=== PATIENT | female | born 1970 | race Caucasian/White ===

== ENCOUNTER 2016-12-03 14:15 | Emergency (ER) | payer MEDICAID, OTHER ==
[~2016-12-03] VITALS: Ht 160 cm; Wt 88.5 kg
--- NOTE | 2016-12-03 14:19 | EN ---
Date/Time of Note Date/Time of Note DATE: 12/03/16 TIME: 14:18 ER Progress Note Medical screening exam note: 46-year-old female comes in with left upper and left mid abdominal pain, medical screening exam was done. Patient will need lab work, pain medication further evaluation and emergency department 2. SHANNEN CARROLL PA-C Dec 03, 2016 14:19
[2016-12-03 14:29] VITALS: Ht 160 cm; Wt 88.5 kg
[2016-12-03] MEDS ORDERED: morphine 4 MG/ML VIAL IV STA (15:00)
[2016-12-03] MEDS ORDERED: ONDANSETRON 4 MG INJ IV STA (15:00)
[2016-12-03 15:21] LABS: ADD SCAN DIFF NO
[2016-12-03 15:41] LABS: ADD UMIC YES; URINE BILIRUBIN (Dip) NEGATIVE (NEGATIVE); URINE BLOOD (Dip) TRACE (NEGATIVE); URINE COLOR LT. YELLOW (YELLOW); URINE GLUCOSE (Dip) NEGATIVE (NEGATIVE); URINE KETONES (Dip) NEGATIVE (NEGATIVE); URINE LEUKOCYTE ESTERASE (Dip) 1+ (NEGATIVE); URINE NITRITE (Dip) NEGATIVE (NEGATIVE); URINE TOTAL PROTEIN (Dip) NEGATIVE (NEGATIVE); URINE UROBILINOGEN (Dip) 0.2 E.U./dL (0.1-1.0)
[2016-12-03 15:43] LABS: BASOPHILS % 0.4 % (0.0-2.0); EOSINOPHILS # 0.2 10^3/ul (0.0-0.5); EOSINOPHILS % 2.4 % (0.0-7.0); HEMATOCRIT 48.2 % (37.0-47.0); LYMPHOCYTES # 1.5 10^3/ul (0.8-2.9); LYMPHOCYTES % 22.3 % (15.0-51.0); MEAN CORPUSCULAR HEMOGLOBIN 30.9 pg (29.0-33.0); MEAN CORPUSCULAR HGB CONC 33.2 g/dl (32.0-37.0); MEAN CORPUSCULAR VOLUME 93.2 fl (82.0-101.0); MEAN PLATELET VOLUME 10.5 fl (7.4-10.4); MONOCYTE # 0.6 10^3/ul (0.3-0.9); MONOCYTES % 8.8 % (0.0-11.0); NEUTROPHIL # 4.4 10^3/ul (1.6-7.5); NEUTROPHILS % 65.8 % (39.0-77.0); PLATELET COUNT 260 10^3/UL (140-415); RED BLOOD COUNT 5.17 10^6/ul (4.20-5.40); RED CELL DISTRIBUTION WIDTH 13.1 % (11.5-14.5); WHITE BLOOD COUNT 6.7 10^3/ul (4.8-10.8)
--- NOTE | 2016-12-03 15:47 | RADRPT ---
PROCEDURE: US Abdomen. CLINICAL INDICATION: abdominal pain TECHNIQUE: Multiple real-time images were acquired of the patient's right upper quadrant abdomen a nd retroperitoneum utilizing a high resolution transducer. COMPARISON: None FINDINGS: The liver demonstrates increased echogenicity. The liver is normal in size and no focal solid lesio ns are seen. The liver measures 14.8 cm in length. The portal vein is patent with normal direction o f flow. No intrahepatic biliary dilatation is seen. No gallstones are identified within the gallbladder. There is no pericholecystic fluid or gallbladd er wall thickening. The common bile duct measures 3.5 mm in maximal dimension. The visualized portions of the pancreas are unremarkable. The tail of the pancreas is not seen. No free fluid is identified. The right kidney is normal in size, and demonstrate normal echogenicity and cortical thickness. The right kidney measures 9.1 cm in long dimension. There is no evidence of hydronephrosis. There are no kidney stones. RPTAT: AA IMPRESSION: Diffuse fatty infiltration of the liver. No evidence of gallstones. .Rio Farnsworth MD, MD Date Time Electronically viewed and signed by .Rio Farnsworth MD, on 12/03/2016 15:46 .S/
[2016-12-03 15:55] LABS: BACTERIA,URINE FEW; SQUAMOUS EPITHELIAL CELL,UR MODERATE; URINE RBCS 0-2 /HPF (0)
[2016-12-03 15:57] LABS: ALBUMIN/GLOBULIN RATIO 1.42; BILIRUBIN,INDIRECT 0.3 mg/dl (0-1.1); BILIRUBIN,TOTAL 0.3 mg/dl (0.2-1.3); CALCIUM 9.5 mg/dl (8.4-10.2); CREATININE 0.88 mg/dl (0.44-1.00); TOTAL PROTEIN 8.5 g/dl (6.1-8.1)
--- NOTE | 2016-12-03 17:07 | RADRPT ---
PROCEDURE: CT Abdomen and Pelvis without contrast CLINICAL INDICATION: Abdominal pain TECHNIQUE: Transaxial images were obtained through the abdomen and pelvis on a multi-slice scanner without the intravenous contrast administration. No oral contrast had previously been given. Sagit josias and coronal re-formations were subsequently reconstructed. One or more of the following dose reduction techniques were used: - Automated exposure control. - Adjustment of the mA and/or kV according to patient size. - Use of iterative reconstruction technique. Radiation dose: CTDIvol = 22.87 mGy; DLP = 1469.01 mGy-cm. COMPARISON: Comparison to the right upper quadrant abdominal sonogram done earlier on the same rodolfo e. The previous sonogram demonstrated increased echotexture to the liver but was otherwise unremarkable . FINDINGS: Lung bases: The visualized lung bases appear unremarkable. Liver: The liver is normal in size. To hypodensities are seen within the right lobe of the liver an teriorly the largest of which measures 1.6 cm in diameter compatible with cysts. No other focal les ion is evident. Gallbladder: The wall is not thickened. No radiopaque stones are identified. Bile ducts: The intra and extrahepatic bile ducts are normal in caliber. Pancreas: Appears normal with no mass or inflammation evident. Spleen: Normal in size with no focal lesion. Adrenals: Normal with no mass identified. Kidneys, ureters and bladder: The kidneys are normal in size and there is no mass, pathological calc ification, or hydronephrosis evident. There is no perinephric stranding. The ureters are normal in c aliber and no ureteroliths are identified. The bladder appears unremarkable. Reproductive organs: The uterus deviates to the left of midline. No adnexal mass is evident. Stomach and bowel: The stomach appears unremarkable. There is no evidence of bowel obstruction or i nflammation. Substantial stool is seen in the right colon. Appendix: A normal vermiform appendix is evident. Peritoneum: No free intraperitoneal fluid or air is identified. There is a small fat containing umbi lical hernia. Aorta: Normal in caliber with no aneurysmal dilatation. IVC: Unremarkable. Lymph nodes: No pathologically enlarged nodes are identified. Osseous structures: The osseous elements appear intact and there is straightening of the normal lord otic curvature to the lumbar spine. IMPRESSION: 1. The liver is normal in size and 2 cysts are seen in the right lobe the largest of which measures 1.6 cm in diameter. 2. There is no evidence of bowel obstruction or inflammation and a normal vermiform appendix is jessica dent. 3. No evidence of urinary outflow obstruction or ureterolithiasis. 4. There is no free intraperitoneal fluid or air. 5. Small fat containing umbilical hernia 6. Straightening of the normal lordotic curvature to the lumbar spine. Physician Tammy Date Time Electronically viewed and signed by Maxi Ramírez Physician on 12/03/2016 17:07 /
[2016-12-03] MEDS ORDERED: ACYC800T57 PO (17:15)
[2016-12-03] MEDS ORDERED: NITR-58 PO (17:15)
[2016-12-03] MEDS ORDERED: IBUP-1542 PO (17:15)
[2016-12-03 17:27] VITALS: BP 122/66; PULSE 76; RESP 18; TEMP 98.2
--- NOTE | 2016-12-03 17:35 | ERD ---
ER Documentation Chief Complaint Date/Time DATE: 12/03/16 TIME: 17:26 Chief Complaint ap x 7 days HPI 46-year-old female complaining of periumbilical abdominal pain 7 days. Patient stated the pain is constant, but sometimes it gets worse. Described pain as grinding and punching-like feeling. Pain is worse while walking. She went to [facility] ER yesterday, was told that she has shingles. Patient stated that she does have a few lesions on her back, but they do not hurt. Patient reports chills, but denies fever. Denies vomiting or diarrhea. Last bowel movement was this morning, which was normal. Last meal was at 1130 this morning. Patient is postmenopausal 7 years. Denies any other medical history. ROS All systems reviewed and are negative except as per history of present illness. Medications Home Meds Active Scripts Acyclovir* (Zovirax*) 800 Mg Tablet, 800 MG PO 5 TIMES DAILY for 7 Days, TAB Prov:CHASITY PHILLIPS. MILL WASHER 12/03/16 Ibuprofen* (Motrin*) 600 Mg Tab, 600 MG PO Q6H Y for PAIN AND OR ELEVATED TEMP, #30 TAB Prov:CHASITY PHILLIPS. M[employer] WASHER 12/03/16 Nitrofurantoin Monohyd Macrocr* (Macrobid*) 100 Mg Capsr, 100 MG PO BID for 7 Days, CAP Prov:CHASITY PHILLIPS. M[employer] WASHER 12/03/16 Allergies Allergies: Coded Allergies: No Known Allergy (Unverified , 12/03/16) PMhx/Soc Medical and Surgical Hx: pt denies Medical Hx, pt denies Surgical Hx History of Surgery: No Anesthesia Reaction: No Hx Neurological Disorder: No Hx Respiratory Disorders: No Hx Cardiac Disorders: No Hx Psychiatric Problems: No Hx Miscellaneous Medical Probl: No Hx Alcohol Use: No Hx Substance Use: No Hx Tobacco Use: No Smoking Status: Never smoker Physical Exam Vitals Vital Signs Date Time Temp Pulse Resp B/P Pulse Ox O2 Delivery O2 Flow Rate FiO2 12/03/16 14:29 98.6 78 18 118/65 95 Physical Exam General: Well-developed, obese, conscious and coherent, in no distress Skin: Warm and dry, good texture and turgor. Vesicular lesions noted on the left lower back, following the T12 dermatome. Head: Normocephalic without evidence of trauma Eyes: Sclera and conjunctivae normal; pupils equal, round, and reactive to light; extraocular movements are intact Neck: Supple without meningismus or adenopathy. Carotids are equal. Trachea midline. No bruits or JVD Chest: Normal AP diameter. Good expansion without retractions. Nontender. Lungs are clear to auscultate bilaterally with good tidal volume Heart: Regular rate and rhythm. No murmur, rub, or gallops heard Abdomen: Soft and obese, periumbilical and suprapubic tenderness without masses, guarding, or rebound. Bowel sounds are active. No hepatosplenomegaly Back: Without spinal or CVA tenderness Pelvis: Nontender to palpation and stable to compression Extremities: Full range of motion. Good strength bilaterally. No clubbing, cyanosis, or edema. Peripheral pulses are intact. Sensation intact Neuro: Alert and oriented 4, GCS 15. Cranial nerves grossly intact. Motor and sensory exams nonfocal. Moves all extremities. Speech clear. Gait normal Result Diagram: 12/03/16 1511 12/03/16 1511 Results 24 hrs Laboratory Tests Test 12/03/16 15:11 12/03/16 15:15 White Blood Count 6.710^3/ul Red Blood Count 5.1710^6/ul Hemoglobin 16.0g/dl Hematocrit 48.2% Mean Corpuscular Volume 93.2fl Mean Corpuscular Hemoglobin 30.9pg Mean Corpuscular Hemoglobin Concent 33.2g/dl Red Cell Distribution Width 13.1% Platelet Count 90534^3/UL Mean Platelet Volume 10.5fl Neutrophils % 65.8% Lymphocytes % 22.3% Monocytes % 8.8% Eosinophils % 2.4% Basophils % 0.4% Nucleated Red Blood Cells % 0.0/100WBC Neutrophils # 4.410^3/ul Lymphocytes # 1.510^3/ul Monocytes # 0.610^3/ul Eosinophils # 0.210^3/ul Basophils # 0.010^3/ul Nucleated Red Blood Cells # 0.010^3/ul Sodium Level 144mmol/L Potassium Level 4.0mmol/L Chloride Level 106mmol/L Carbon Dioxide Level 27mmol/L Anion Gap 15 Blood Urea Nitrogen 15mg/dl Creatinine 0.88mg/dl Glucose Level 105mg/dl Calcium Level 9.5mg/dl Total Bilirubin 0.3mg/dl Direct Bilirubin 0.00mg/dl Indirect Bilirubin 0.3mg/dl Aspartate Amino Transf (AST/SGOT) 83IU/L Alanine Aminotransferase (ALT/SGPT) 158IU/L Alkaline Phosphatase 115IU/L Total Protein 8.5g/dl Albumin 5.0g/dl Globulin 3.50g/dl Albumin/Globulin Ratio 1.42 Lipase 141U/L Urine Color LT. YELLOW Urine Clarity CLEAR Urine pH 5.5 Urine Specific Gratz 1.025 Urine Ketones NEGATIVE Urine Nitrite NEGATIVE Urine Bilirubin NEGATIVE Urine Urobilinogen 0.2 E.U./dL Urine Leukocyte Esterase 1+ Urine Microscopic RBC 0-2/HPF Urine Microscopic WBC 10-25/HPF Urine Squamous Epithelial Cells MODERATE Urine Calcium Oxalate Crystals FEW Urine Bacteria FEW Urine Hemoglobin TRACE Urine Glucose NEGATIVE% Urine Total Protein NEGATIVE Current Medications Medications (Trade) Dose Ordered Sig/Jackei Route PRN Reason Start Time Stop Time Status Last Admin Dose Admin Morphine Sulfate (morphine) 4 mg ONCE STAT IV 12/03/16 15:00 12/03/16 15:03 DC 12/03/16 15:10 Ondansetron HCl (Zofran Inj) 4 mg ONCE STAT IV 12/03/16 15:00 12/03/16 15:03 DC 12/03/16 15:10 PROCEDURE: US Abdomen. CLINICAL INDICATION: abdominal pain TECHNIQUE: Multiple real-time images were acquired of the patient's right upper quadrant abdomen and retroperitoneum utilizing a high resolution transducer. COMPARISON: None FINDINGS: The liver demonstrates increased echogenicity. The liver is normal in size and no focal solid lesions are seen. The liver measures 14.8 cm in length. The portal vein is patent with normal direction of flow. No intrahepatic biliary dilatation is seen. No gallstones are identified within the gallbladder. There is no pericholecystic fluid or gallbladder wall thickening. The common bile duct measures 3.5 mm in maximal dimension. The visualized portions of the pancreas are unremarkable. The tail of the pancreas is not seen. No free fluid is identified. The right kidney is normal in size, and demonstrate normal echogenicity and cortical thickness. The right kidney measures 9.1 cm in long dimension. There is no evidence of hydronephrosis. There are no kidney stones. RPTAT: AA IMPRESSION: Diffuse fatty infiltration of the liver. No evidence of gallstones. .Rio Farnsworth MD, MD Date Time Electronically viewed and signed by .Rio Farnsworth MD, MD on 12/03/2016 15: 46 .S/ CC: CHASITY PHILLIPS NP PROCEDURE: CT Abdomen and Pelvis without contrast CLINICAL INDICATION: Abdominal pain TECHNIQUE: Transaxial images were obtained through the abdomen and pelvis on a multi-slice scanner without the intravenous contrast administration. No oral contrast had previously been given. Sagittal and coronal re-formations were subsequently reconstructed. One or more of the following dose reduction techniques were used: - Automated exposure control. - Adjustment of the mA and/or kV according to patient size. - Use of iterative reconstruction technique. Radiation dose: CTDIvol = 22.87 mGy; DLP = 1469.01 mGy-cm. COMPARISON: Comparison to the right upper quadrant abdominal sonogram done earlier on the same date. The previous sonogram demonstrated increased echotexture to the liver but was otherwise unremarkable. FINDINGS: Lung bases: The visualized lung bases appear unremarkable. Liver: The liver is normal in size. To hypodensities are seen within the right lobe of the liver anteriorly the largest of which measures 1.6 cm in diameter compatible with cysts. No other focal lesion is evident. Gallbladder: The wall is not thickened. No radiopaque stones are identified. Bile ducts: The intra and extrahepatic bile ducts are normal in caliber. Pancreas: Appears normal with no mass or inflammation evident. Spleen: Normal in size with no focal lesion. Adrenals: Normal with no mass identified. Kidneys, ureters and bladder: The kidneys are normal in size and there is no mass, pathological calcification, or hydronephrosis evident. There is no perinephric stranding. The ureters are normal in caliber and no ureteroliths are identified. The bladder appears unremarkable. Reproductive organs: The uterus deviates to the left of midline. No adnexal mass is evident. Stomach and bowel: The stomach appears unremarkable. There is no evidence of bowel obstruction or inflammation. Substantial stool is seen in the right colon. Appendix: A normal vermiform appendix is evident. Peritoneum: No free intraperitoneal fluid or air is identified. There is a small fat containing umbilical hernia. Aorta: Normal in caliber with no aneurysmal dilatation. IVC: Unremarkable. Lymph nodes: No pathologically enlarged nodes are identified. Osseous structures: The osseous elements appear intact and there is straightening of the normal lordotic curvature to the lumbar spine. IMPRESSION: 1. The liver is normal in size and 2 cysts are seen in the right lobe the largest of which measures 1.6 cm in diameter. 2. There is no evidence of bowel obstruction or inflammation and a normal vermiform appendix is evident. 3. No evidence of urinary outflow obstruction or ureterolithiasis. 4. There is no free intraperitoneal fluid or air. 5. Small fat containing umbilical hernia 6. Straightening of the normal lordotic curvature to the lumbar spine. Physician Tammy Date Time Electronically viewed and signed by Physician Tammy on 12/03/2016 17:07 RH/ CC: CHASITY PHILLIPS. MILL WASHER Procedures/MDM Well-appearing 46-year-old female presented to ED with abdominal pain 7 days. CBC, CMP, lipase are unremarkable except for slightly elevated AST and ALT. UA has 1+ leukocyte, 10-25 WBCs. Patient appeared to have a urinary tract infection. Gallbladder ultrasound is negative. CT abdomen and pelvis was obtained. CT showed a small fat-containing umbilical hernia, likely cause of patient's pain. No acute appendicitis, bowel obstruction, urolithiasis, intraperitoneal free fluid or free air is noted without CT. I doubt patient has acute appendicitis, cholecystitis, pancreatitis, bowel obstruction, or other acute abdomen. Patient was diagnosed with shingles yesterday, her skin lesions are herpetic in nature. However she did not get an antiviral medication yesterday. I will prescribe acyclovir for her today. Patient appears well, stable for discharge and outpatient management. Medical decision making shared with patient and family. Education provided to patient and family. Patient and family expressed understanding of the plan. Medications on discharge: Ibuprofen, Macrobid, acyclovir. Follow-up: Primary care provider in 2-3 days or return to ED if worse. The case was reviewed and discussed with Dr. Garcia, who agrees with the plan of care including labs, treatment, and advanced imaging as appropriate. Departure Diagnosis: Primary Impression: Abdominal pain Abdominal location: periumbilical Qualified Code: R10.33 - Periumbilical abdominal pain Additional Impressions: Herpes zoster Herpes zoster complications: without complications Qualified Code: B02.9 - Herpes zoster without complication Umbilical hernia Obstruction and gangrene presence: without obstruction or gangrene Qualified Code: K42.9 - Umbilical hernia without obstruction and without gangrene UTI (urinary tract infection) Urinary tract infection type: acute cystitis Hematuria presence: without hematuria Qualified Code: N30.00 - Acute cystitis without hematuria Condition: Stable Patient Instructions: Understanding Urinary Tract Infections (UTIs), Shingles ( Herpes Zoster), Hernia (Inguinal, Ventral, Umbilical) [facility] Usted se mulligan hecho un examen mdico de control que le indica que no est en elton condicin que requiera tratamiento urgente en el Departamento de Emergencia. Un estudio ms profundo y el tratamiento de miranda condicin pueden esperar sin ningn riesgo hasta que usted sea atendida/o en el consultorio de miranda mdico o elton cl eric. Es responsabilidad suya arreglar elton kapil para el seguimiento del grace. MANEJO DE CONDICIONES NO URGENTES EN EL FUTURO 1) Si usted tiene un mdico de atencin primaria: Usted debera llamar a miranda mdico de atencin primaria antes de venir al departamento de emergencia. Despus de las horas de consultorio, miranda doctor o miranda asociado/a est disponible por telfono. El mdico o enfermero de [place]ore[place] en el servicio telefnico puede asesorarle por reagan medio para atender el problema, o grace contrario se puede programar elton kapil. 2) Si usted no tiene un mdico de atencin primaria: Llame al mdico o clnica de referencia que aparece abajo ivet las horas de consultorio para hacer elton kapil para que le vean. CLINICAS: [place] [phone] [facility] [phone] [place] [id number] [phone] [place] [phone] [place] [phone] [facility] [phone] [address] Additional Instructions: Llame al doctor MAANA y randell elton KAPIL PARA DENTRO DE 2-3 DAWSON.Dgale a la secretaria que nosotros le instruimos hacer esta kapil.Avise o llame si miranda condicin se empeora antes de la kapil. Regresa aqui si peor o no mejor. CHASITY PHILLIPS NP Dec 03, 2016 17:35
== END 2016-12-03 17:28 | disposition home or self-care (01) ==
LOC: FTE 14:15
DX: R10.33 Periumbilical pain (principal); B02.9 Zoster without complications; K42.9 Umbilical hernia without obstruction or gangrene; N30.00 Acute cystitis without hematuria; R10.2 Pelvic and perineal pain
CPT/HCPCS: 74176; 76705; 80053; 81001; 83690; 85025; J2270; J2405; 36415; 96374; 96375